=== PATIENT | male | born 1985 | race Caucasian/White ===

== ENCOUNTER 2023-04-21 20:36 | Inpatient (IN) | payer OTHER ==
[~2023-04-21] VITALS: Ht 170.2 cm; Wt 99.5 kg
[~2023-04-21 20:36] MED LIST: AMITRIPTYLINE150 MG PO; AMOX TR-K CLV1 EAC1 PO; BUTRANS1 EAC1 TD; CLONIDINE HCL0.2 MG PO; FLOMAX0.4 MG PO; GABAPENTIN600 MG PO; GRALISE600 MG PO; KLONOPIN2 MG PO; METHADONE HCL40 MG PO; NORCO 5-325 TA1 EACH PO; POTASSIUM CHLO20 ME1 PO; QUETIAPINE FUM200 MG PO; SUBOXONE 8 MG-1 EAC1 SL; TIZANIDINE HCL4 M1 PO; TYLENOL325 M1 PO; ULTRAM50 MG PO; ZOFRAN ODT8 MG PO
--- OUTSIDE RECORDS SUMMARY | 2023-04-21 20:38 | XMS ---
PreManage Notification: DENNY PATEL Security Dental Office Manager Events No recent Security Events currently on file CRITERIA MET - TIAP CARE PROVIDERS -[place]- Dentist: Window And Siding Craftsman [facility] PHONE: [phone] JINNY NICE Physician Wooden Frame Builder Current PHONE: Unknown Ann has no Care Guidelines for this patient. Narcisa VISIT COUNT (12 MO.) Rosalba Banks TOTAL 2 NOTE: Visits indicate total known visits. ED/UCC VISIT TRACKING (12 MO.) 2023 20:37 ANDRES Walker [place] TYPE: Emergency COMPLAINT: - DRUG USE 05/29/2022 10:53 ANDRES Walker [place] TYPE: Emergency COMPLAINT: - ABDOMINAL PAIN INPATIENT VISIT TRACKING (12 MO.) 05/29/2022 10:54 ANDRES Walker [place] TYPE: Observation COMPLAINT: - CHOLELITHIASIS, CHOLECYSTITIS DIAGNOSES: - Anxiety disorder, unspecified - Calculus of gallbladder with acute cholecystitis without obstruction - Calculus of kidney with calculus of ureter - Contact with and (suspected) exposure to COVID-19 - Umbilical hernia without obstruction or gangrene [email or web address]
[2023-04-21 21:06] LABS: BASOPHILS 0.6 % (0-2); EOSINOPHILS 2.6 % (0-6); HEMATOCRIT 38.9 % (35.0-50.0); HEMOGLOBIN 13.1 g/dL (12.0-18.0); LYMPHOCYTES 17.5 % (24-44); MCH 29.5 (27-36); MCHC 33.7 g/dl (30-36); MCV 87.7 fl (81-99); MONOCYTES 3.2 % (0-12); NEUTROPHILS 76.1 % (39-80); PLATELET COUNT 338 K/uL (140-440); RBC 4.44 M/ul (4.3-5.7); RDW 13.4 (10.5-15.0)
[2023-04-21 21:26] LABS: BILIRUBIN, URINE NEGATIVE (negative); BLOOD/HGB, URINE LARGE (Negative); KETONE, URINE NEGATIVE (Negative); LEUK ESTERASE, URINE NEGATIVE (negative); NITRITE, URINE NEGATIVE (negative)
[2023-04-21 21:32] LABS: EPITHELIAL CELLS, URINE SQUAMOUS 1+ /lpf (0-1+); RED BLOOD CELLS, URINE >50 /hpf (0-5)
[2023-04-21 21:33] LABS: BACTERIA, URINE RARE /hpf (negative); CASTS, URINE NONE SEEN \\lpf; COLLECTION TYPE, URINE CLEAN CATCH; CRYSTALS, URINE NONE SEEN (0-1+); REFLEX CULTURE, URINE No (No)
[2023-04-21 21:34] LABS: ALBUMIN 3.9 g/dL (3.4-5.0); ALBUMIN/GLOBULIN RATIO 1.03 (1.1-2.4); ALCOHOL, MEDICAL <3 ng/dL (<3); ALKALINE PHOSPHATASE 153 U/L (46-116); ALT (SGPT) 37 U/L (14-59); ANION GAP 12.5 (7-21); AST (SGOT) 27 U/L (15-37); BILIRUBIN, TOTAL 0.5 ng/dL (0.2-1.0); BUN/CREATININE RATIO 7.08 (6.0-28.6); CALCIUM 9.5 mg/dL (8.5-10.1); CARBON DIOXIDE 29 mmol/L (21-32); CHLORIDE 101 mmol/L (98-107); CREATININE, SERUM 1.27 mg/dL (0.70-1.30); GLOMERULAR FILTRATION RATE,EST 74 mL/min (>60); POTASSIUM 4.5 mmol/L (3.5-5.1); PROTEIN, TOTAL 7.7 g/dL (6.4-8.2); UREA NITROGEN 9 mg/dL (7-18)
[2023-04-21 21:54] LABS: AMPHETAMINES, URINE NEGATIVE (NEGATIVE); BARBITURATES, URINE NEGATIVE (NEGATIVE); BENZODIAZEPINE, URINE NEGATIVE (NEGATIVE); BUPRENORPHINE, URINE NEGATIVE (NEGATIVE); CANNABINOID, URINE POSITIVE (NEGATIVE); COCAINE, URINE NEGATIVE (NEGATIVE); ECSTASY, URINE NEGATIVE (NEGATIVE); FENTANYL, URINE POSITIVE (NEGATIVE); OPIATES, URINE NEGATIVE (NEGATIVE); OXYCODONE, URINE NEGATIVE (NEGATIVE); PHENCYCLIDINE, URINE NEGATIVE (NEGATIVE)
[2023-04-22] VITALS (18 sets, daily range): BP systolic 89–138; BP diastolic 51–93
[2023-04-22 04:47] LABS: ALBUMIN 2.6 g/dL (3.4-5.0); ALBUMIN/GLOBULIN RATIO 0.93 (1.1-2.4); ANION GAP 10.2 (7-21); BILIRUBIN, TOTAL 0.4 ng/dL (0.2-1.0); BUN/CREATININE RATIO 10.57 (6.0-28.6); CALCIUM 8.3 mg/dL (8.5-10.1); CREATININE, SERUM 1.04 mg/dL (0.70-1.30); POTASSIUM 4.2 mmol/L (3.5-5.1); PROTEIN, TOTAL 5.4 g/dL (6.4-8.2)
[2023-04-22] MEDS ORDERED: ATORVASTATIN CA40 MG PO (08:38)
[2023-04-22] MEDS ORDERED: PROPRANOLOL HCL20 MG PO (08:38)
[2023-04-22] MEDS ORDERED: QUETIAPINE FUM100 MG PO (08:41)
--- NOTE | 2023-04-22 08:47 | NUR ---
CONNECTED WITH MOTHER IN CCU WAITING ROOM WHILE PT WAS GETTING SETTLED IN ROOM. MOTHER HAS BEEN WITH PT ALL NIGHT IN ER. STATED SHE MIGHT GO HOME FOR A WHILE AND TEND TO SELF AND ANIMALS. DENIED ANY NEEDS AT THIS TIME.
--- NOTE | 2023-04-22 09:32 | EKG ---
[facility] [address] [facility] [place], [place] [address] Signed EKG completed, results pending confirmation PATIENT NAME: DENNY PATEL Electrocardiogram DATE OF : 85 PHYSICIAN: PRELIMINARY REPORT #: [id number] REPORT IS CONFIDENTIAL AND NOT TO BE RELEASED WITHOUT AUTHORIZATION
--- NOTE | 2023-04-22 12:00 | NUR ---
PATIENT DENNY CONTINUES TO BE SOMNOLENT AND MODERATELY DIFFICULT TO AROUSE. RASS -3. ABLE TO MOVE ALL EXTREMITIES, HOWEVER HE STILL APPEARS TO HAVE ABNORMAL FLEXION. PATIENT DENIES ANY PAIN AND IMMEDIATELY GOES BACK TO SLEEP. NARCAN GTT AT 0.05MG AND MF AT 125CC PER HR. CATHETER CARE PROVIDED AND TURNED PATIENT
--- NOTE | 2023-04-22 12:07 | NUR ---
RECEIVED SBAR REPORT FROM SUSY GODOY IN THE ED. PATIENT IS NOTED TO MINIMALLY FOLLOW COMMANDS, NARCAN GTT AT 0.1 MG, PUPILS 5+ SLUGGISH, 8L SIMPLE MASK. HE IS FOUND TO BE TREMULOUS. MOTHER WALLY AT BEDSIDE STATED THAT THE PATIENT IS TREMULOUS AT BEDSIDE
--- NOTE | 2023-04-22 14:00 | NUR ---
MOTHER WALLY CONTINUES TO BE AT BEDSIDE. NARCAN GTT 0.05MG AND MF AT 125CC PE HR. RASS -3. PATIENT INDWELLING HAMMER CATHETER. PATIENT IS ABLE TO OPEN EYES AND FOLLOW COMMANDS WHEN AROUSED
--- NOTE | 2023-04-22 14:35 | NUR ---
PATIENT SOMNOLENT. UNABLE TO COMPLETE ASSESSMENT AT THIS TIME.
--- NOTE | 2023-04-22 16:00 | NUR ---
PATIENT OPENS EYES AND FOLLOWS COMMANDS APPROPRIATELY. NARCAN GTT OFF. MF 125CC PER HR. INDWELLING HAMMER CATHETER REMAINS PATIENT AND INTACT. NYSTAGMUS DECREASING. PATIENT ENDORSES FEELING "SLEEPY" AND DENIES ALL OTHER DISCOMFORTS. CONTINUES TO BE TREMULOUS, HOWEVER MOTHER STATES THAT THAT IS "NORMAL FOR HIM" AND THAT "HIS FATHER IS THE SAME WAY"
--- NOTE | 2023-04-22 16:48 | NUR ---
REMAINS SOMNOLENT. ESDRAS INFORMATION AND CARD PROVIDED TO CCU NURSE TO GIVE TO PATIENT WHEN HE WAKES UP.
--- NOTE | 2023-04-22 16:55 | EKG ---
[facility] [address] [facility] [place] [address] Signed Sinus rhythm with 1st degree AV block with fusion complexes Incomplete left bundle branch block Nonspecific ST abnormality Abnormal ECG When compared with ECG of 21-APR-2023 21:22, (Unconfirmed) fusion complexes are now present WV interval has increased Confirmed by MORA GONG MD ([id number]) on 04/22/2023 4:55:08 PM Electronically Signed By: MORA GONG 04/22/23 1655 PATIENT NAME: DENNY PATEL Electrocardiogram DATE OF : 85 PHYSICIAN: MORA GONG REPORT #: [id number] REPORT IS CONFIDENTIAL AND NOT TO BE RELEASED WITHOUT AUTHORIZATION
--- NOTE | 2023-04-22 16:55 | EKG ---
[facility] [address] [facility] [place] [address] Signed Normal sinus rhythm Nonspecific T wave abnormality Prolonged QT Abnormal ECG When compared with ECG of 21-APR-2023 21:23, (Unconfirmed) fusion complexes are no longer present ST no longer elevated in Inferior leads Confirmed by MORA GONG MD ([id number]) on 04/22/2023 4:55:32 PM Electronically Signed By: MORA GONG 04/22/23 1655 PATIENT NAME: DENNY PATEL GUILLERMO Electrocardiogram DATE OF : 85 PHYSICIAN: MORA GONG REPORT #: [id number] REPORT IS CONFIDENTIAL AND NOT TO BE RELEASED WITHOUT AUTHORIZATION
--- NOTE | 2023-04-22 19:23 | NUR ---
NEURO- ALERT TO SELF AND PLACE. ABLE TO MOVE ALL EXTREMETIES. STRENGTH 3/5 IN ALL EXTREMITIES. DENIES ANY PAIN OR DISCOMFORT. SLIGHT NYSTAGMUS APPRECIATED. PUPILS SLUGGISH 3+ CARDIAC- SR WITH 1ST DEGREE AV BLOCK FOR 0900 AND 1200 STRIPS. 1600 CALCULATED SR. +1 EDEMA NOTED IN ALL 4 EXTREMITIES. AFEBRILE RESP- PATIENT IS NOTED TO HAVE UNDIAGNOSED SLEEP APNEA. WHILE SOMNOLENT, HE HAS INTERMITTENTLY REQUIRED O2 SIMPLE MASK. CURRENTLY ON 5L SIMPLE MASK. CLEAR/ DIM BREATH SOUNDS APPRECIATED IN UPPER AND LOWER LOBES. ABLE TO COUGH AND DEBRIEF GI/- NPO, BOWEL TONES IN ALL 4 QUADRANTS. INDWELLING HAMMER CATHETER INT- BURN WOUND ON RIGHT WRIST LDA RLE AND RAC MF 125CC P HR
--- NOTE | 2023-04-22 19:40 | NUR ---
ROUDNING WITH DAYSHIRICH MORALES RN, PT ASSESSED FOR ALERTNESS, HE IS RESPONDING AND VERBALIZING RESPONSES, HIS MOTHER IS AT BEDSIDE, INTRODUCTIONS MADE.
--- NOTE | 2023-04-22 20:00 | NUR ---
MOTHER SAYING GOODBYE FOR THE NIGHT, SHE SAID "I AM GOING HOME FOR THE NIGHT" PATIENT SAID "I WANT TO GO TOO" PATIENTS MOTHER SAID "NO, YOU NEED TO STAY HERE YOU ARE NOT WELL ENOUGH YET"
--- NOTE | 2023-04-22 20:26 | NUR ---
PATIENT VERBALIZED "I WANT MY PHONE, I WANT TO CALL MY MOM" NO CELL PHONE FOUND IN ROOM, PATIENT ASSISTED TO CALL ON ROOM PHONE, HE SAID "MOM, I WANT YOU TO BRING ME A CAN OF CHEW" THIS RN EXPLAINED THAT HE COULD NOT HAVE ANY CHEW ON HOSPITAL CAMPUS, PATIENT IGNORED THIS, AND CONTINUED TO REQUEST THE CHEW, PATIENT ALSO SAID "SHE IS NOT HERE" HE REPEATED THIS MULTIPLE TIMES, THEN HIS MOTHER HUNG UP THE PHONE ON HER END, PATIENT REFUSED TO RELINQUISH THE ROOM PHONE TO THIS RN, INITIALLY, THEN LET GO. HIS MOTHER THEN CALLED THE NURSES STATION TO TALK WITH THIS RN IN REGARDS TO CHEW, THIS RN SAID "HE CAN NOT HAVE CHEW, BUT I CAN ORDER A NICOTINE PATCH FOR HIM" SHE SAID "OH, THAT WILL PROBABLY HELP A LITTLE" NO FURTHER CONCERNS OR QUESTIONS AT THIS TIME
--- NOTE | 2023-04-22 22:17 | NUR ---
PT RESTING QUIETLY IN BED, EYES CLOSED, RESPIRATION RATE REGULAR AT 14/MIN, PT IN RELAXED POSITION, V/S STABLE, OXYGEN SATURATION 98% ON 4L OXYMASK.
--- NOTE | 2023-04-22 22:19 | NUR ---
OXYGEN TITRATION TO 2L OXYMASK AT THIS TIME. 97% OXYGEN SATURATION.
[2023-04-23] VITALS (8 sets, daily range): BP systolic 112–134; BP diastolic 65–94
--- NOTE | 2023-04-23 00:27 | NUR ---
PATIENT RESTING IN BED AT THIS TIME EYES CLOSED, ALERT TO NAME, FOLLOWED INSTRUCTIONS TO DEEP BREATH AND COUGH AT THIS TIME.
--- NOTE | 2023-04-23 01:03 | NUR ---
ROOM AIR TRIAL AT THIS TIME, PT IS ALERT TO RN AT BEDSIDE, VERBALIZING APPROPRIATELY, ANSWER QUESTIONS, NO REPORT OR PAIN.
--- NOTE | 2023-04-23 02:53 | NUR ---
PT ALERT AND TALKING, HE IS ORIENTED TO PLACE AND TOWN, HE COULD NOT REMEBER HOW HE GOT HERE OR WHY, HE DOES REMEBER EATING A "GUMMY" HE THOUGHT WAS ONLY THC. HE THEN VERBALIZED HE WANTS TO CALL HIS MOTHER, PATIENT REORIENTED TO TIME, HE SAID "I WANT TO CALL HER", DISCUSSED WITH PATIENT IF THERE IS SOMETHING THAT STAFF COULD PROVIDE, PATIENT SAID "NO, I JUST WANT TO CALL MY MOM" DISCUSSED WITH PATIENT THAT IF HE IS WANTING CHEW HE DID LAST NIGHT WHEN HE CALLED HIS MOTHER THAT THIS IS A [facility]BAC[facility], THIS RN ASKED PATIENT IF HE WOULD LIKE A NICOTINE PATCH TO PROVIDE NICOTINE, HE SAID "YES", NICOTINE PATCH PROVIDED AT THIS TIME. PT NO LONGER ASKED TO CALL HIS MOTHER, PT ABLE TO SIT STRAIGHT UP IN BED, BED ALARN ON FOR PATIENT SAFETY, HE IS NOW RELAXED BACK IN BED.
--- NOTE | 2023-04-23 04:29 | NUR ---
PATIENT VERY ANXIOUS, HE WANTS TO TALK TO IS MOTHER ON THE PHONE, THIS RN DIALED ROOM PHONE AND HIS MOTHER WALLY ANSWERED AND TALK WITH PATIENT, PATIENT MUCH RELAXED AFTER PHONE CALL.
[2023-04-23 05:37] LABS: BASOPHILS 1.2 % (0-2); HEMOGLOBIN 12.3 g/dL (12.0-18.0); LYMPHOCYTES 20.3 % (24-44); MCH 29.8 (27-36); MCHC 34.1 g/dl (30-36); MCV 87.4 fl (81-99); NEUTROPHILS 70.5 % (39-80); PLATELET COUNT 233 K/uL (140-440); RBC 4.12 M/ul (4.3-5.7); RDW 13.7 (10.5-15.0)
--- NOTE | 2023-04-23 05:39 | NUR ---
PT HAS BEEN SITTING UP IN BED SETTING OFF BED ALARM, THIS RN ASKED "WOULD YOU LIKE TO GET UP TO RECLINER?" PATIENT SAID "NO, I JUST WANT TO REST HERE" PT REPORTS HE HAS NO PAIN AND NO NEEDS AT THIS TIME
[2023-04-23 05:43] LABS: ANION GAP 11.9 (7-21); CALCIUM 8.6 mg/dL (8.5-10.1); CREATININE, SERUM 1.3 mg/dL (0.70-1.30); POTASSIUM 3.9 mmol/L (3.5-5.1)
--- NOTE | 2023-04-23 06:37 | NUR ---
PT SITTING UP IN BED, RAISED HEAD OF BED TO SUPPPORT HIM IN SITTING UP POSITION, ASKE PATIENT IF HE WOULD LIKE TO GET UP TO RECLINER, HE SAID "NO", THEN HE ASKED "WHERE IS MY PHONE?" THIS RN TOLD PATIENT "YOUR MOM HAS YOUR PHONE" PATIENT "WHERE IS MY PHONE REALLY?" AGAIN THIS RN SAID "YOUR MOM TOOK EVERYTHING BUT YOUR CLOTHS" THIS RN ASKED PATIENT IF HE REMEMBER TALKING TO HER ON THE ROOM PHONE THIS MORNING, HE SAID "YES" PATIENT NODDED "YES" WHEN ASKED IF HE IS COMFORTABLE AT THIS TIME, NO FURTHER NEEDS VERBALIZED, HE REPORTS NO PAIN.
--- NOTE | 2023-04-23 07:49 | NUR ---
REPORT REC'D FROM SUSY MOSS AND PLAN OF CARE RESUMES. DR. GONG IN ROOM TO SEE PATIENT AND PLAN OF CARE DISCUSSED. PT ELIGIBLE TO HAVE HAMMER D/C AND DIET ADVANCED. ORDERS PLACED FOR THESE THINGS. PT IS AWAKE UPON ENTRY TO ROOM, ORIENTED TO SELF, BUT UNSURE OF YEAR, DATE, MONTH, OR CURRENT SITUATION. PT DENIES PAIN. IVF CONTINUE NS AT 125 ML/HR. PT HAS REMAINED OFF NARCAN GTT. PT'S MOTHER TO BE COMING BACK IN TODAY PER REPORT. PT HAS REMAINED OFF OXYGEN THROUGH THE NIGHT. HR 80s, SINUS. CONTINUE TO MONITOR. WILL WORK WITH GETTING PATIENT UP TO CHAIR.
--- NOTE | 2023-04-23 09:19 | NUR ---
PATIENT'S MOTHER HERE VISITING WITH PATIENT. SHE BROUGHT HIM A SMOOTHIE AND HE IS DRINKING THIS WITHOUT ANY PROBLEM AT THIS TIME. SHE REITERATES THAT THIS IS NOT HIS NORMAL BASELINE, AND HE NORMALLY IS MORE COGNITIVELY INTACT AND SHARP. PLAN MADE WITH PATIENT TO START WORKING ON MOVING, AND WILL GET PATIENT UP TO CHAIR.
--- NOTE | 2023-04-23 10:18 | NUR ---
PATIENT UP TO CHAIR WITH 2 PERSON ASSIST. PT IS VERY UNSTEADY ON FEET, AND NOT COORDINATED WITH HIS MOVEMENTS. PT IS A HIGH FALL RISK. PT WAS ABLE TO BARE HIS WEIGHT,BUT WOULD BENEFIT FROM A WALKER FOR STABILITY. PT'S MOTHER REMAINS IN ROOM.
--- NOTE | 2023-04-23 12:06 | NUR ---
PATIENT UP IN ROOM, WALKS WITH FRONT WHEELED WALKER, AND ABLE TO WALK VERY SLOWLY OUT TO NURSE'S STATION, AND THEN BACK TO HIS ROOM. PT STARTING TO BECOME A LITTLE MORE COORDINATED WITH MOVEMENTS BUT IS STILL SLOW. PT THEN ABLE TO WALK INTO BATHROOM TO VOID, VOIDING 200 ML AFTER HAMMER WAS D/C. PT NOW EATING LUNCH. PT'S MOTHER REMAINS IN ROOM. PT IS NOW ORIENTED TO MONTH, YEAR, PLACE AND SITUATION. PUPILS ARE MORE RESPONSIVE TO LIGHT NOW, LESS SLUGGISH. IVF ARE STILL INFUSING AT 125 ML/HR. WILL CONTINUE TO MONITOR.
--- NOTE | 2023-04-23 13:10 | NUR ---
PATIENT TAKEN OFF MONITOR AND DISCONNECTED FROM IVF. PT TO AMBULATE MORE BEFORE BEING REEVALUATED AGAIN BY DR. GONG AROUND 1500, TO SEE IF HE IS ABLE TO D/C HOME TODAY. PT AGREEABLE TO THIS, BUT STILL JUST VERY TIRED. PT'S MOTHER LEAVES NOW, BUT STATES SHE WILL RETURN IN ABOUT AN HOUR.
[2023-04-23] MEDS ORDERED: METHADONE HCL10 MG PO (15:14)
== END 2023-04-23 16:05 | disposition home or self-care (01) | DRG 918 ==
LOC: ED 20:36 → CCU 04-22 08:09
PROVIDERS: Internal Medicine; ADMIT Internal Medicine; ATTEND Internal Medicine
DX: T40.601A Poisoning by unspecified narcotics, accidental (unintentional), initial encounter (principal); F17.210 Nicotine dependence, cigarettes, uncomplicated; F41.9 Anxiety disorder, unspecified; F11.10 Opioid abuse, uncomplicated; F12.10 Cannabis abuse, uncomplicated; Z87.442 Personal history of urinary calculi; Z98.890 Other specified postprocedural states; Z79.899 Other long term (current) drug therapy; Z79.2 Long term (current) use of antibiotics
CPT/HCPCS: 36415; 70450; 71045; 80048; 80053; 80307; 81001; 82553; 83735; 84443; 84484; 85025; 93005; 93010; G0480; J1953; J2060; J2310; J7030; J7040; J7060; J7121; Q2009

== ENCOUNTER 2023-12-30 01:17 | Emergency (ER) | payer OTHER ==
[~2023-12-30] VITALS: Ht 170.2 cm; Wt 103.6 kg
[~2023-12-30 01:17] MED LIST changes: +ATORVASTATIN CA40 MG PO; +METHADONE HCL10 MG PO; +PROPRANOLOL HCL20 MG PO; +QUETIAPINE FUM100 MG PO
--- OUTSIDE RECORDS SUMMARY | 2023-12-30 01:19 | XMS ---
PreManage Notification: DENNY PATEL Security Signal Technician Events No recent Security Events currently on file CRITERIA MET - TIA CARE PROVIDERS -, [facility] Dentist: Senior Accounting Associate [facility] PHONE: [phone] -[place]- Dentist: Senior Accounting Associate Current Person [facility] PHONE: [phone] Ann has no Care Guidelines for this patient. Narcisa VISIT COUNT (12 MO.) 2 ANDRES Banks TOTAL 2 NOTE: Visits indicate total known visits. ED/UCC VISIT TRACKING (12 MO.) 12/30/2023 01:18 ANDRES Walker [place] TYPE: Emergency COMPLAINT: - MEDICATION REFILL 2023 20:37 ANDRES Walker OR TYPE: Emergency COMPLAINT: - DRUG USE INPATIENT VISIT TRACKING (12 MO.) 04/22/2023 08:09 ANDRES Walker [place] TYPE: Critical Care COMPLAINT: - NARCOTIC OVERDOSE DIAGNOSES: - Anxiety disorder, unspecified - Cannabis abuse, uncomplicated - shelter (current) use of antibiotics - Nicotine dependence, cigarettes, uncomplicated - Opioid abuse, uncomplicated - Other group home (current) drug therapy - Other specified postprocedural states - Personal history of urinary calculi - Poisoning by unspecified narcotics, accidental (unintentional), initial encounter [email or web address]
[2023-12-30] MEDS ORDERED: GABAPENTIN600 MG PO (01:32)
[2023-12-30] MEDS ORDERED: GABAPENTIN 300 MG CAP PO ONE (01:45)
[2023-12-30 01:51] VITALS: BP 137/96
== END 2023-12-30 01:51 | disposition home or self-care (01) ==
LOC: ED 01:17
DX: G40.909 Epilepsy, unspecified, not intractable, without status epilepticus (principal); Z76.0 Encounter for issue of repeat prescription; F17.200 Nicotine dependence, unspecified, uncomplicated; Z79.899 Other long term (current) drug therapy
CPT/HCPCS: 99281; A9270

== ENCOUNTER 2024-05-02 21:31 | Emergency (ER) | payer OTHER ==
[~2024-05-02] VITALS: Ht 170.2 cm; Wt 101.4 kg
[2024-05-02] MEDS ORDERED: QUETIAPINE FUM100 MG PO (21:47)
[2024-05-02] MEDS ORDERED: HYDROCODON-ACE1 EA10 PO (22:36)
[2024-05-02] MEDS ORDERED: CRUTCHES XX (22:42)
[2024-05-02] MEDS ORDERED: HYDROCODONE BIT/ACETAMINOPHEN 5/325 MG 1 TAB HOME.PACK PO PRN (22:45)
[2024-05-02 22:55] VITALS: BP 121/99
== END 2024-05-02 23:25 | disposition home or self-care (01) ==
LOC: ED 21:31
DX: M23.92 Unspecified internal derangement of left knee (principal); F17.200 Nicotine dependence, unspecified, uncomplicated; Z96.652 Presence of left artificial knee joint; W01.0XXA Fall on same level from slipping, tripping and stumbling without subsequent striking against object, initial encounter
CPT/HCPCS: 73560; 99283; A9270